=== PATIENT | female | born 1985 | race Caucasian/White ===

== ENCOUNTER 2017-02-19 20:34 | Inpatient (IN) | payer OTHER ==
[2017-02-19] MEDS ORDERED: Nalbuphine 20 MG/1 ML Amp IVPUSH PRN (21:23)
[2017-02-19] MEDS ORDERED: Ondansetron 4 MG/2 ML SDV IVPUSH PRN (21:23)
[2017-02-19] MEDS ORDERED: Acetaminophen 325 MG Tab PO PRN (21:23)
[2017-02-19] MEDS ORDERED: Sodium Chloride 0.9% 10 ML Syringe FLUSH PRN (21:23)
--- NOTE | 2017-02-19 21:27 | PCM.LDHP ---
L&D History of Present Illness - General Date of Service: 02/19/17 Admit Problem/Dx: Patient Status Order with Admit Dx/Problem 02/19/17 21:24 Patient Status [ADT] Routine Admission Diagnosis/Problem Admission Diagnosis/Problem Normal in third trimester Source of Information: Patient History Limitations: Reports: No Limitations - History of Present Illness Introduction:: 31 y/o at 40 3/7 wks presents tonight in likely early latent labor. Was seen in L&D earlier this AM due to concerns of bleeding which was thought to possibly be related to cervical change. She was seen again in the PM in clinic and had made small amounts of cervical change. She now presents tonight stating contractions have been worsening. Still reports continued bleeding/ small clots. - Related Data Allergies/Adverse Reactions: Allergies Allergy/AdvReac Type Severity Reaction Status Date / Time No Known Allergies Allergy Verified 01/03/15 12:02 Past Medical History Other Gastrointestinal History: occ takes pepcid for gastritis. 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 - Past Surgical History HEENT Surgical History: Reports: Tonsillectomy, Other (See Below) Other HEENT Surgeries/Procedures: wisdom teeth extraction Female Surgical History: Reports: Cystectomy Social & Family History - Tobacco Use Smoking Status *Q: Former Smoker (QUIT 2007...1/2 ppd x 2 YRS.) Years of Tobacco use: 2 Used Tobacco, but Quit: Yes Second Hand Smoke Exposure: No - Alcohol Use Alcohol Use History: No Days Per Week of Alcohol Use: 1 - Recreational Drug Use Recreational Drug Use: No Drug Use in Last 12 Months: No H&P Review of Systems - Review of Systems: Review Of Systems: See Below General: Reports: No Symptoms Pulmonary: Reports: No Symptoms Cardiovascular: Reports: No Symptoms Gastrointestinal: Reports: Abdominal Pain Genitourinary: Reports: No Symptoms Musculoskeletal: Reports: No Symptoms Psychiatric: Reports: No Symptoms Neurological: Reports: No Symptoms L&D Exam - Exam Exam: See Below - Vital Signs Weight: 73.799 kg - OB Specific Contraction Intensity: Mild to Moderate Movement: Active Heart Tones: Present Heart Tones per Min: 150 Heart Rate (FHR) Variability: Moderate (6-25 bmp) Presentation: Vertex - Ambrosio Score Ambrosio Score Cervix Position: Posterior Ambrosio Score Consistency: Soft Ambrosio Score Effacement: 51-70% Ambrosio Score Dilation: 1-2 cm Ambrosio Score Infant's Station: -1 ,0 Ambrosio Score Total: 7 - Exam General: Alert, Oriented, Cooperative Lungs: Clear to Auscultation, Normal Respiratory Effort Cardiovascular: Regular Rate, Regular Rhythm Genitourinary: Normal external exam Extremities: Normal Inspection Skin: Warm, Dry, Intact - Patient Data Result Diagrams: 02/19/17 21:40 - Problem List (1) 40 weeks gestation of SNOMED Code(s): 83939644 ICD Code: Z3A.40 - 40 WEEKS GESTATION OF Status: Acute Current Visit: Yes (2) Normal labor SNOMED Code(s): 28894018 ICD Code: O80 - ENCOUNTER FOR FULL-TERM UNCOMPLICATED DELIVERY; Z37.9 - OUTCOME OF DELIVERY, UNSPECIFIED Status: Acute Current Visit: Yes (3) Rh negative state in antepartum period SNOMED Code(s): 522881979, 019891935 ICD Code: O09.899 - SUPERVISION OF OTHER HIGH RISK PREGNANCIES, UNSP TRIMESTER Status: Acute Current Visit: Yes Problem List Initiated/Reviewed/Updated: Yes Orders Last 24hrs: Active Orders 24 hr Category Date Time Status Patient Status [ADT] Routine ADT 02/19/17 21:24 Ordered Activity as Tolerated [RC] PFP Care 02/19/17 21:23 Ordered Communication Order [RC] ASDIRECTED Care 02/19/17 21:23 Ordered Heart Tones [RC] ASDIRECTED Care 02/19/17 21:24 Ordered Notify Provider [RC] PFP Care 02/19/17 21:23 Ordered Notify Provider [RC] PRN Care 02/19/17 21:23 Ordered Peripheral IV Care [RC] . DIRECTED Care 02/19/17 21:24 Ordered Vital Signs [RC] PER UNIT ROUTINE Care 02/19/17 21:23 Ordered CBC W/O DIFF,HEMOGRAM [HEME] Routine Lab 02/19/17 21:23 Ordered FIBRINOGEN [COAG] Routine Lab 02/19/17 21:23 Ordered INR,PT,PROTHROMBIN TIME [COAG] Routine Lab 02/19/17 21:23 Ordered PTT,PARTIAL THROMBOPLSTIN TIME [COAG] Routine Lab 02/19/17 21:23 Ordered TYPE AND SCREEN [BBK] Routine Lab 02/19/17 21:23 Ordered Acetaminophen [Tylenol] Med 02/19/17 21:23 Ordered 650 mg PO Q4H PRN Lactated Ringers [Ringers, Lactated] 1,000 ml Med 02/19/17 21:30 Ordered IV ASDIRECTED Nalbuphine [Nubain] Med 02/19/17 21:23 Ordered 10 mg IVPUSH Q2H PRN Ondansetron [Zofran] Med 02/19/17 21:23 Ordered 4 mg IVPUSH Q4H PRN Oxytocin/Lactated Ringers [Pitocin in LR 10 Units/1,000 Med 02/19/17 21:30 Ordered ML] 10 unit in 1,000 ml IV .CONTINUOUS Sodium Chloride 0.9% [Saline Flush] Med 02/19/17 21:23 Ordered 10 ml FLUSH ASDIRECTED PRN Electronic Heart Tones Ext w TOCO [WOMSER] Oth 02/19/17 21:23 Ordered Routine Electronic Heart Tones Internal [WOMSER] Per Unit Oth 02/19/17 21:23 Ordered Routine Peripheral IV Insertion Adult [OM.PC] Routine Oth 02/19/17 21:23 Ordered Resuscitation Status Routine Resus Stat 02/19/17 21:23 Ordered Assessment/Plan Comment:: 31 y/o at 40 3/7 wks likely presents in early labor, but with continued small amounts of bleeding. * CBC, PTT, PT, and Fibrinogen for continued bleeding episodes * Patient likely early labor, but given bleeding and gestational age will admit patient * If contractions lessen or no cervical change will consider augmentation with cytotec * GBS negative, no need for antibiotics * Pain management per patient preference * Anticipate
[2017-02-19] MEDS ORDERED: Oxytocin/Lactated Ringers 10 UNIT/1,000 ML BAG IV SCH (21:30)
[2017-02-19] MEDS: Lactated Ringers 1,000 ML IV SCH (23:30)
[2017-02-19] MEDS ORDERED: Misoprostol 25 MCG (1/4 of 100 MCG) Tab ONE (23:45)
[2017-02-20] MEDS ORDERED: Zolpidem 10 MG Tab PO STA (00:10)
[2017-02-20] MEDS: Lactated Ringers 1,000 ML IV SCH ×4 (00:31→07:01)
[2017-02-20] MEDS ORDERED: Oxytocin/Lactated Ringers 10 UNIT/1,000 ML BAG IV SCH (04:45)
[2017-02-20] MEDS ORDERED: fentaNYL 100 MCG/2 ML SDV EPIDUR PRN (05:59)
[2017-02-20] MEDS ORDERED: ePHEDrine 50 MG/ML SDV IVPUSH PRN (05:59)
[2017-02-20] MEDS ORDERED: diphenhydrAMINE 50 MG/ML SDV IVPUSH PRN (05:59)
[2017-02-20] MEDS: Bupivacaine/fentaNYL/NS 100 ML Bag EPIDUR SCH ×2 (06:23→14:31)
--- NOTE | 2017-02-20 06:32 | PCM.PREANE ---
Preanesthetic Assessment - Anesthesia/Transfusion/Family Hx Anesthesia History: Prior Anesthesia Without Reaction Family History of Anesthesia Reaction: No Transfusion History: No Prior Transfusion(s) - Review of Systems General: No Symptoms Pulmonary: No Symptoms Cardiovascular: No Symptoms Gastrointestinal: No Symptoms Neurological: No Symptoms Other: Reports: None - Physical Assessment Pulse: 81 O2 Sat by Pulse Oximetry: 99 Respiratory Rate: 16 Blood Pressure: 118/77 Temperature: 36.8 C Vital Signs: Last Vital Signs Temp 36.8 C 02/19/17 21:23 Pulse 81 02/19/17 21:23 Resp 16 02/19/17 21:23 BP 118/77 02/19/17 21:23 Pulse Ox 99 02/19/17 21:23 Height: 1.63 m Weight: 73.799 kg ASA Class: 2 Mental Status: Alert & Oriented x3 Airway Class: Mallampati = 1 Dentition: Reports: Normal Dentition Thyro-Mental Finger Breadths: 3 Mouth Opening Finger Breadths: 3 ROM/Head Extension: Full Lungs: Clear to Auscultation, Normal Respiratory Effort Cardiovascular: Regular Rate, Regular Rhythm - Lab Values: Laboratory Last Values WBC 10.78 K/mm3 (3.98-10.04) H 02/19/17 21:40 RBC 4.08 M/mm3 (3.98-5.22) 02/19/17 21:40 Hgb 12.7 gm/L (11.2-15.7) 02/19/17 21:40 Hct 37.7 % (34.1-44.9) 02/19/17 21:40 MCV 92.4 fl (79.4-94.8) 02/19/17 21:40 MCH 31.1 pg (25.6-32.2) 02/19/17 21:40 MCHC 33.7 g/dl (32.2-35.5) 02/19/17 21:40 RDW Std Deviation 47.9 fL (36.4-46.3) H 02/19/17 21:40 Plt Count 193 K/mm3 (182-369) 02/19/17 21:40 MPV 10.3 fl (9.4-12.3) 02/19/17 21:40 PT 9.4 SECONDS (8.0-13.0) 02/19/17 21:40 INR 0.87 02/19/17 21:40 APTT 26 SECONDS (22-36) 02/19/17 21:40 Fibrinogen 344.6 mg/dL (200-400) 02/19/17 21:40 Blood Type A NEGATIVE 02/19/17 21:40 Gel Antibody Screen Positive 02/19/17 21:40 - Allergies Allergies/Adverse Reactions: Allergies Allergy/AdvReac Type Severity Reaction Status Date / Time No Known Allergies Allergy Verified 01/03/15 12:02 - Anesthesia Plan Pre-Op Medication Ordered: None - Acknowledgements Anesthesia Type Planned: Epidural Pt an Appropriate Candidate for the Planned Anesthesia: Yes Alternatives and Risks of Anesthesia Discussed w Pt/Guardian: Yes Pt/Guardian Understands and Agrees with Anesthesia Plan: Yes PreAnesthesia Questionnaire - Past Health History Medical/Surgical History: Denies Medical/Surgical History Other HEENT History: wears contacts Gastrointestinal History: Reports: GERD Other Gastrointestinal History: occ takes pepcid for gastritis. 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 Other Neuro History: had one seizure when was a first grader. - Past Surgical History Other HEENT Surgeries/Procedures: wisdom teeth extraction - SUBSTANCE USE Smoking Status *Q: Former Smoker (QUIT 2007...1/2 ppd x 2 YRS.) Tobacco Use Within Last Twelve Months: No Other Tobacco Use Within Last Twelve Months: 2 yrs ago Second Hand Smoke Exposure: No Days Per Week of Alcohol Use: 1 Recreational Drug Use History: No - CURRENT (IN HOUSE) MEDS Current Meds: Current Medications Acetaminophen (Tylenol) 650 mg PO Q4H PRN PRN Reason: Pain (Mild 1-3) and fever Diphenhydramine HCl (Benadryl) 25 mg IVPUSH Q6H PRN PRN Reason: Itching Ephedrine Sulfate (Ephedrine Sulfate) 5 mg IVPUSH ASDIRECTED PRN PRN Reason: HYPOTENTSION Fentanyl (Sublimaze) 100 mcg EPIDUR Q3H PRN PRN Reason: PAIN Last Admin: 02/20/17 06:23 Dose: 100 mcg Fentanyl/Bupivacaine HCl (Fentanyl/Bupivacaine/Ns 2 Mcg-0.125% 100 Ml) 100 ml EPIDUR ASDIRECTED NATHALIE Last Admin: 02/20/17 06:23 Dose: 100 ml Lactated Ringer's (Ringers, Lactated) 1,000 mls @ 40 mls/hr IV ASDIRECTED NATHALIE Last Admin: 02/20/17 04:57 Dose: 500 mls/hr Oxytocin/Lactated Ringer's (Pitocin In Lr 10 Units/1,000 Ml) 10 unit in 1,000 mls @ 500 mls/hr IV .CONTINUOUS NATHALIE Oxytocin/Lactated Ringer's (Pitocin In Lr 10 Units/1,000 Ml) 10 unit in 1,000 mls @ 6 mls/hr IV TITRATE NATHALIE; 1 MUNITS/MIN PRN Reason: Protocol Last Admin: 02/20/17 05:00 Dose: 1 munits/min, 6 mls/hr Nalbuphine HCl (Nubain) 10 mg IVPUSH Q2H PRN PRN Reason: Pain (moderate 4-6) Last Admin: 02/20/17 03:08 Dose: 10 mg Ondansetron HCl (Zofran) 4 mg IVPUSH Q4H PRN PRN Reason: Nausea/Vomiting Sodium Chloride (Saline Flush) 10 ml FLUSH ASDIRECTED PRN PRN Reason: Keep Vein Open Discontinued Medications Misoprostol (Cytotec) Confirm Administered Dose 25 mcg .ROUTE .STK-MED ONE Stop: 02/19/17 23:46 Last Admin: 02/19/17 23:54 Dose: 25 mcg Zolpidem Tartrate (Ambien) 10 mg PO ONETIME STA Stop: 02/20/17 00:11 Last Admin: 02/20/17 00:25 Dose: 10 mg
--- NOTE | 2017-02-20 08:55 | PCM.PNLD ---
Labor Progress Note - VS & Meds Vital Signs: Last Vital Signs Temp 36.8 C 02/20/17 06:32 Pulse 81 02/20/17 06:32 Resp 16 02/20/17 06:32 BP 118/77 02/20/17 06:32 Pulse Ox 99 02/20/17 06:32 Active Medications: Current Medications Acetaminophen (Tylenol) 650 mg PO Q4H PRN PRN Reason: Pain (Mild 1-3) and fever Diphenhydramine HCl (Benadryl) 25 mg IVPUSH Q6H PRN PRN Reason: Itching Ephedrine Sulfate (Ephedrine Sulfate) 5 mg IVPUSH ASDIRECTED PRN PRN Reason: HYPOTENTSION Fentanyl (Sublimaze) 100 mcg EPIDUR Q3H PRN PRN Reason: PAIN Last Admin: 02/20/17 06:23 Dose: 100 mcg Fentanyl/Bupivacaine HCl (Fentanyl/Bupivacaine/Ns 2 Mcg-0.125% 100 Ml) 100 ml EPIDUR ASDIRECTED NATHALIE Last Admin: 02/20/17 06:23 Dose: 100 ml Lactated Ringer's (Ringers, Lactated) 1,000 mls @ 40 mls/hr IV ASDIRECTED NATHALIE Last Admin: 02/20/17 07:01 Dose: 500 mls/hr Oxytocin/Lactated Ringer's (Pitocin In Lr 10 Units/1,000 Ml) 10 unit in 1,000 mls @ 500 mls/hr IV .CONTINUOUS NATHALIE Oxytocin/Lactated Ringer's (Pitocin In Lr 10 Units/1,000 Ml) 10 unit in 1,000 mls @ 6 mls/hr IV TITRATE NATHALIE; 1 MUNITS/MIN PRN Reason: Protocol Last Admin: 02/20/17 05:00 Dose: 1 munits/min, 6 mls/hr Nalbuphine HCl (Nubain) 10 mg IVPUSH Q2H PRN PRN Reason: Pain (moderate 4-6) Last Admin: 02/20/17 03:08 Dose: 10 mg Ondansetron HCl (Zofran) 4 mg IVPUSH Q4H PRN PRN Reason: Nausea/Vomiting Sodium Chloride (Saline Flush) 10 ml FLUSH ASDIRECTED PRN PRN Reason: Keep Vein Open Discontinued Medications Misoprostol (Cytotec) Confirm Administered Dose 25 mcg .ROUTE .STK-MED ONE Stop: 02/19/17 23:46 Last Admin: 02/19/17 23:54 Dose: 25 mcg Zolpidem Tartrate (Ambien) 10 mg PO ONETIME STA Stop: 02/20/17 00:11 Last Admin: 02/20/17 00:25 Dose: 10 mg - Uterine Contractions Contraction Intensity: Mild to Moderate - Monitoring Monitor Mode: External Ultrasound Heart Rate (FHR) Baseline: 150 Heart Rate (FHR) Variability: Moderate (6-25 bmp) Accelerations: Present, 15x15 Decelerations: Late - Vaginal Exam Dilation (cm): 4 Effacement (Percent): 80 Station: 0 Cervical Position: Midposition - Labor Progress (Free Text) Labor Progress: Called by nursing at 0545 due to prolonged deceleration. SVE done and shows patient to be 4 cm. Baby recovered currently. Did receive 1 dose of cytotec last night at midnight and just had SROM at 0500. Baby recovered now. Will allow epidural placement and then continue to monitor closely ---- 0800 patient doing well. Baby with some periods of minimal variability. Contractions hard to monitor. Will place IUPC and then start pitocin as needed.
--- NOTE | 2017-02-20 11:40 | PCM.PNLD ---
Labor Progress Note - VS & Meds Vital Signs: Last Vital Signs Temp 36.8 C 02/20/17 06:32 Pulse 81 02/20/17 06:32 Resp 16 02/20/17 06:32 BP 118/77 02/20/17 06:32 Pulse Ox 99 02/20/17 06:32 Active Medications: Current Medications Acetaminophen (Tylenol) 650 mg PO Q4H PRN PRN Reason: Pain (Mild 1-3) and fever Diphenhydramine HCl (Benadryl) 25 mg IVPUSH Q6H PRN PRN Reason: Itching Ephedrine Sulfate (Ephedrine Sulfate) 5 mg IVPUSH ASDIRECTED PRN PRN Reason: HYPOTENTSION Fentanyl (Sublimaze) 100 mcg EPIDUR Q3H PRN PRN Reason: PAIN Last Admin: 02/20/17 06:23 Dose: 100 mcg Fentanyl/Bupivacaine HCl (Fentanyl/Bupivacaine/Ns 2 Mcg-0.125% 100 Ml) 100 ml EPIDUR ASDIRECTED NATHALIE Last Admin: 02/20/17 06:23 Dose: 100 ml Lactated Ringer's (Ringers, Lactated) 1,000 mls @ 40 mls/hr IV ASDIRECTED NATHALIE Last Admin: 02/20/17 07:01 Dose: 500 mls/hr Oxytocin/Lactated Ringer's (Pitocin In Lr 10 Units/1,000 Ml) 10 unit in 1,000 mls @ 500 mls/hr IV .CONTINUOUS NATHALIE Oxytocin/Lactated Ringer's (Pitocin In Lr 10 Units/1,000 Ml) 10 unit in 1,000 mls @ 6 mls/hr IV TITRATE NATHALIE; 1 MUNITS/MIN PRN Reason: Protocol Last Titration: 02/20/17 09:31 Dose: 4 munits/min, 24 mls/hr Nalbuphine HCl (Nubain) 10 mg IVPUSH Q2H PRN PRN Reason: Pain (moderate 4-6) Last Admin: 02/20/17 03:08 Dose: 10 mg Ondansetron HCl (Zofran) 4 mg IVPUSH Q4H PRN PRN Reason: Nausea/Vomiting Sodium Chloride (Saline Flush) 10 ml FLUSH ASDIRECTED PRN PRN Reason: Keep Vein Open Discontinued Medications Misoprostol (Cytotec) Confirm Administered Dose 25 mcg .ROUTE .STK-MED ONE Stop: 02/19/17 23:46 Last Admin: 02/19/17 23:54 Dose: 25 mcg Zolpidem Tartrate (Ambien) 10 mg PO ONETIME STA Stop: 02/20/17 00:11 Last Admin: 02/20/17 00:25 Dose: 10 mg - Uterine Contractions Uterine Monitoring Mode: IUPC Contraction Intensity: Moderate to Strong - Monitoring Monitor Mode: External Ultrasound Heart Rate (FHR) Baseline: 150 Heart Rate (FHR) Variability: Moderate (6-25 bmp) (Some periods of minimal variability) Accelerations: Present, 15x15 Decelerations: Early - Vaginal Exam Dilation (cm): 6 Effacement (Percent): 90 Station: 0 Cervical Position: Anterior - Labor Progress (Free Text) Labor Progress: Patient doing well. Pitocin at 6. Making good change. Continue present management
--- NOTE | 2017-02-20 18:58 | PCM.DEL ---
L & D Note - General Info Date of Service: 02/20/17 - Delivery Note Labor: Augmented by Oxytocin Cervical Ripening Method: Misoprostil Delivery Outcome: Livebirth Infant Delivery Method: Spontaneous Vaginal Delivery Delivery Mode: Spontaneous Presentation: Right Occiput Anterior (APRIL) Nuchal Cord: None Anesthesia Type: Epidural Amniotic Fluid Description: Meconium Stained Episiotomy Type: None Laceration: 2nd Degree, Vaginal Suture type: Vicryl Suture size: 2-0 Placenta: Intact, Spontaneous Cord: 3 Vessels Estimated Blood Loss: 350 Resuscitation Needed: Yes [place]: Suctioned, Bulb Syringe, Stimulated, Warmed, Schaller Used, Warmer Used Score 1 min: 6 Score 5 min: 8 Delivery Comments (Free Text/Narrative):: Patient found to be complete and began pushing. With maternal pushing effort head delivered from an APRIL presentation. No nuchal cord present. With gentle downward traction the shoulders and body delivered. Cord clamped and cut. Cord segment obtained. Cord blood obtained. Placenta allowed time to separate and then spontaneously expelled. Inspection of the perineum showed 2nd degree tear expending up both vaginal sulci. This was repaired with a 2-0 vicryl in the typical fashion - Patient Data Vitals - Most Recent: Last Vital Signs Temp 36.8 C 02/20/17 06:32 Pulse 81 02/20/17 06:32 Resp 16 02/20/17 06:32 BP 118/77 02/20/17 06:32 Pulse Ox 99 02/20/17 06:32 Weight - Most Recent: 73.799 kg I&O - Last 24 Hours: Intake & Output 02/20/17 02/20/17 02/20/17 06:59 14:59 22:59 Intake Total 999 5000 60 Balance 999 5000 60 Lab Results Last 24 Hours: Laboratory Results - last 24 hr 02/19/17 02/19/17 02/19/17 Range/Units 21:40 21:40 21:40 WBC 10.78 H (3.98-10.04) K/mm3 RBC 4.08 (3.98-5.22) M/mm3 Hgb 12.7 (11.2-15.7) gm/L Hct 37.7 (34.1-44.9) % MCV 92.4 (79.4-94.8) fl MCH 31.1 (25.6-32.2) pg MCHC 33.7 (32.2-35.5) g/dl RDW Std Deviation 47.9 H (36.4-46.3) fL Plt Count 193 (182-369) K/mm3 MPV 10.3 (9.4-12.3) fl PT 9.4 (8.0-13.0) SECONDS INR 0.87 APTT 26 (22-36) SECONDS Fibrinogen 344.6 (200-400) mg/dL Blood Type A NEGATIVE Gel Antibody Screen Positive Med Orders - Current: Current Medications Acetaminophen (Tylenol) 650 mg PO Q4H PRN PRN Reason: Pain (Mild 1-3) and fever Diphenhydramine HCl (Benadryl) 25 mg IVPUSH Q6H PRN PRN Reason: Itching Ephedrine Sulfate (Ephedrine Sulfate) 5 mg IVPUSH ASDIRECTED PRN PRN Reason: HYPOTENTSION Fentanyl (Sublimaze) 100 mcg EPIDUR Q3H PRN PRN Reason: PAIN Last Admin: 02/20/17 06:23 Dose: 100 mcg Fentanyl/Bupivacaine HCl (Fentanyl/Bupivacaine/Ns 2 Mcg-0.125% 100 Ml) 100 ml EPIDUR ASDIRECTED NATHALIE Last Admin: 02/20/17 14:31 Dose: 100 ml Lactated Ringer's (Ringers, Lactated) 1,000 mls @ 40 mls/hr IV ASDIRECTED NATHALIE Last Admin: 02/20/17 07:01 Dose: 500 mls/hr Oxytocin/Lactated Ringer's (Pitocin In Lr 10 Units/1,000 Ml) 10 unit in 1,000 mls @ 500 mls/hr IV .CONTINUOUS NATHALIE Oxytocin/Lactated Ringer's (Pitocin In Lr 10 Units/1,000 Ml) 10 unit in 1,000 mls @ 6 mls/hr IV TITRATE NATHALIE; 1 MUNITS/MIN PRN Reason: Protocol Last Titration: 02/20/17 11:00 Dose: 6 munits/min, 36 mls/hr Nalbuphine HCl (Nubain) 10 mg IVPUSH Q2H PRN PRN Reason: Pain (moderate 4-6) Last Admin: 02/20/17 03:08 Dose: 10 mg Ondansetron HCl (Zofran) 4 mg IVPUSH Q4H PRN PRN Reason: Nausea/Vomiting Sodium Chloride (Saline Flush) 10 ml FLUSH ASDIRECTED PRN PRN Reason: Keep Vein Open Discontinued Medications Misoprostol (Cytotec) Confirm Administered Dose 25 mcg .ROUTE .STK-MED ONE Stop: 02/19/17 23:46 Last Admin: 02/19/17 23:54 Dose: 25 mcg Zolpidem Tartrate (Ambien) 10 mg PO ONETIME STA Stop: 02/20/17 00:11 Last Admin: 02/20/17 00:25 Dose: 10 mg - Problem List & Annotations (1) 40 weeks gestation of SNOMED Code(s): 93800890 Code(s): Z3A.40 - 40 WEEKS GESTATION OF Status: Acute Current Visit: Yes (2) Normal labor SNOMED Code(s): 91777051 Code(s): O80 - ENCOUNTER FOR FULL-TERM UNCOMPLICATED DELIVERY; Z37.9 - OUTCOME OF DELIVERY, UNSPECIFIED Status: Acute Current Visit: Yes (3) Rh negative state in antepartum period SNOMED Code(s): 852316380, 273373249 Code(s): O09.899 - SUPERVISION OF OTHER HIGH RISK PREGNANCIES, UNSP TRIMESTER Status: Acute Current Visit: Yes (4) Vaginal delivery SNOMED Code(s): 803882733 Code(s): O80 - ENCOUNTER FOR FULL-TERM UNCOMPLICATED DELIVERY Status: Acute Current Visit: Yes - Problem List Review Problem List Initiated/Reviewed/Updated: Yes - My Orders Last 24 Hours: My Active Orders 02/19/17 21:23 Activity as Tolerated [RC] PFP Communication Order [RC] ASDIRECTED Notify Provider [RC] PFP Notify Provider [RC] PRN Vital Signs [RC] PER UNIT ROUTINE Acetaminophen [Tylenol] 650 mg PO Q4H PRN Nalbuphine [Nubain] 10 mg IVPUSH Q2H PRN Ondansetron [Zofran] 4 mg IVPUSH Q4H PRN Sodium Chloride 0.9% [Saline Flush] 10 ml FLUSH ASDIRECTED PRN Electronic Heart Tones Ext w TOCO [WOMSER] Routine Electronic Heart Tones Internal [WOMSER] Per Unit Routine Peripheral IV Insertion Adult [OM.PC] Routine Resuscitation Status Routine 02/19/17 21:24 Patient Status [ADT] Routine Peripheral IV Care [RC] . DIRECTED 02/19/17 21:30 Lactated Ringers [Ringers, Lactated] 1,000 ml IV ASDIRECTED Oxytocin/Lactated Ringers [Pitocin in LR 10 Units/1,000 ML] 10 unit in 1,000 ml IV .CONTINUOUS 02/19/17 21:40 ANTIBODY IDENTIFICATION [BBK] Routine TYPE AND SCREEN [BBK] Routine 02/20/17 04:45 Oxytocin/Lactated Ringers [Pitocin in LR 10 Units/1,000 ML] 10 unit in 1,000 ml IV TITRATE 02/20/17 Lunch Regular Diet [DIET] - Assessment Assessment:: G2 now P1011 PPD#0 from at 40 4/7 wks gestation - Plan Plan:: * Routine cares * Bottle feeding * Discharge home in 1-2 day Rh neg * Will assess baby blood type to see if additional rhogam needed
[2017-02-20] MEDS ORDERED: Lanolin 100% Cream 7 GM Tube TOP PRN (19:15)
[2017-02-20] MEDS ORDERED: Witch Hazel Medicated Pads 100/Jar TOP PRN (19:15)
[2017-02-20] MEDS ORDERED: Benzocaine/Menthol 20%-0.5% Spray 56 GM Canister TOP PRN (19:15)
[2017-02-20] MEDS ORDERED: Acetaminophen 325 MG Tab PO PRN (19:15)
[2017-02-20] MEDS ORDERED: Bupivacaine 0.25% 10 ML SDV ONE (22:22)
[2017-02-21] MEDS: Docusate Sodium 100 MG Cap PO PRN (00:15)
[2017-02-21] MEDS: Ibuprofen 600 MG Tab PO PRN ×3 (00:15→18:36)
--- NOTE | 2017-02-21 06:34 | PCM.PNPP ---
- General Info Date of Service: 02/21/17 Admission Dx/Problem (Free Text): PPD1 from deliver last evening. Would like to go home at 24 hours but awaiting baby voiding and circumcision. Minimal bleeding. Pain moderate. Controlled with ibuprofen. No significant leg swelling. Functional Status: Reports: Pain Controlled - Review of Systems General: Reports: No Symptoms HEENT: Reports: No Symptoms Pulmonary: Reports: No Symptoms Cardiovascular: Reports: No Symptoms Gastrointestinal: Reports: No Symptoms Genitourinary: Reports: No Symptoms Musculoskeletal: Reports: No Symptoms Skin: Reports: No Symptoms Neurological: Reports: No Symptoms Psychiatric: Reports: No Symptoms - General Info Date of Service: 02/21/17 - Patient Data Vital Signs - Most Recent: Last Vital Signs Temp 36.7 C 02/21/17 00:01 Pulse 113 H 02/21/17 00:01 Resp 18 02/21/17 00:01 BP 109/71 02/21/17 00:01 Pulse Ox 98 02/21/17 00:01 Weight - Most Recent: 73.799 kg I&O - Last 24 Hours: Intake & Output 02/20/17 02/20/17 02/21/17 14:59 22:59 06:59 Intake Total 5000 1060 Balance 5000 1060 Lab Results - Last 24 Hours: Laboratory Results - last 24 hr 02/20/17 02/20/17 Range/Units 18:46 19:05 Cord ABG pH 7.18 L (7.22-7.32) Cord ABG pCO2 50.6 (42-58) Cord ABG pO2 34 H (12-24) Cord ABG HCO3 18.2 L (24-26) Cord ABG Base Excess -10.7 L (-5.5-0.1) Cord VBG pH 7.21 L (7.28-7.40) Cord VBG pCO2 45.3 H (32.8-38.6) Cord VBG pO2 31 (28-32) Cord VBG HCO3 17.5 L (19-24) Cord VBG Base Excess -10.5 L (-4.4-0.4) Med Orders - Current: Current Medications Acetaminophen (Tylenol) 650 mg PO Q4H PRN PRN Reason: mild pain or fever Benzocaine/Menthol (Dermoplast Pain Relief [place]) 0 gm TOP ASDIRECTED PRN PRN Reason: Perineal Comfort Measure Last Admin: 02/20/17 22:23 Dose: 1 can Docusate Sodium (Colace) 100 mg PO BID PRN PRN Reason: Constipation Last Admin: 02/21/17 00:15 Dose: 100 mg Emollient Ointment (Lansinoh Hpa) 0 gm TOP ASDIRECTED PRN PRN Reason: Sore Nipples Ibuprofen (Motrin) 600 mg PO Q6H PRN PRN Reason: Mild pain or fever Last Admin: 02/21/17 00:15 Dose: 600 mg Witch Noemi (Tucks) 1 pad TOP ASDIRECTED PRN PRN Reason: Hemorrhoid pain Last Admin: 02/20/17 22:23 Dose: 1 tub Discontinued Medications Acetaminophen (Tylenol) 650 mg PO Q4H PRN PRN Reason: Pain (Mild 1-3) and fever Diphenhydramine HCl (Benadryl) 25 mg IVPUSH Q6H PRN PRN Reason: Itching Ephedrine Sulfate (Ephedrine Sulfate) 5 mg IVPUSH ASDIRECTED PRN PRN Reason: HYPOTENTSION Fentanyl (Sublimaze) 100 mcg EPIDUR Q3H PRN PRN Reason: PAIN Last Admin: 02/20/17 06:23 Dose: 100 mcg Fentanyl/Bupivacaine HCl (Fentanyl/Bupivacaine/Ns 2 Mcg-0.125% 100 Ml) 100 ml EPIDUR ASDIRECTED NATHALIE Last Admin: 02/20/17 14:31 Dose: 100 ml Lactated Ringer's (Ringers, Lactated) 1,000 mls @ 40 mls/hr IV ASDIRECTED [facility] Last Admin: 02/20/17 07:01 Dose: 500 mls/hr Oxytocin/Lactated Ringer's (Pitocin In Lr 10 Units/1,000 Ml) 10 unit in 1,000 mls @ 500 mls/hr IV .CONTINUOUS NATHALIE Oxytocin/Lactated Ringer's (Pitocin In Lr 10 Units/1,000 Ml) 10 unit in 1,000 mls @ 6 mls/hr IV TITRATE NATHALIE; 1 MUNITS/MIN PRN Reason: Protocol Last Titration: 02/20/17 18:30 Dose: 999 mls/hr Misoprostol (Cytotec) Confirm Administered Dose 25 mcg .ROUTE .STK-MED ONE Stop: 02/19/17 23:46 Last Admin: 02/19/17 23:54 Dose: 25 mcg Nalbuphine HCl (Nubain) 10 mg IVPUSH Q2H PRN PRN Reason: Pain (moderate 4-6) Last Admin: 02/20/17 03:08 Dose: 10 mg Ondansetron HCl (Zofran) 4 mg IVPUSH Q4H PRN PRN Reason: Nausea/Vomiting Sodium Chloride (Saline Flush) 10 ml FLUSH ASDIRECTED PRN PRN Reason: Keep Vein Open Zolpidem Tartrate (Ambien) 10 mg PO ONETIME STA Stop: 02/20/17 00:11 Last Admin: 02/20/17 00:25 Dose: 10 mg - Infant Interaction Support Person: - Recovery Exam Fundal Tone: Firm Fundal Level: At Umbilicus Fundal Placement: Midline Lochia Amount: Small Lochia Color: Rubra/Red Perineum Description: Edematous Episiotomy/Laceration: Approximated Bladder Status: Voiding Urinary Elimination: Voided - Exam General: Alert, Oriented HEENT: Pupils Equal Neck: Supple Lungs: Clear to Auscultation, Normal Respiratory Effort Cardiovascular: Regular Rate, Regular Rhythm GI/Abdominal Exam: Normal Bowel Sounds, Soft, Non-Tender, No Organomegaly, No Distention, No Abnormal Bruit, No Mass, Pelvis Stable Extremities: Normal Inspection, Normal Range of Motion, Non-Tender, No Pedal Edema, Normal Capillary Refill Skin: Warm, Dry, Intact Wound/Incisions: Healing Well Neurological: No New Focal Deficit Psy/Mental Status: Alert, Normal Affect, Normal Mood - Problem List Review Problem List Initiated/Reviewed/Updated: Yes - Assessment Assessment:: G2 now P1011 PPD#1 from at 40 4/7 wks gestation Routine care. - Plan Plan:: * Routine cares * Bottle feeding * Discharge home in 1-2 day Rh neg * Will assess baby blood type to see if additional rhogam needed
[2017-02-22] MEDS: Docusate Sodium 100 MG Cap PO PRN (00:44)
[2017-02-22] MEDS: Ibuprofen 600 MG Tab PO PRN ×2 (00:45→08:22)
[2017-02-22 05:14] VITALS: BP 110/65
--- NOTE | 2017-02-22 07:52 | PCM.DCSUM1 ---
Discharge Summary - Hospital Course Brief History: Admitted for induction of labor. . Unremarkable course. - Discharge Data Discharge Date: 02/22/17 Discharge Disposition: Home, Self-Care 01 Condition: Good - Patient Instructions Diet: Usual Diet as Tolerated Activity: No Strenuous Activities Driving: May Drive Today Showering/Bathing: May Shower, No Showering, No Tub Bathing/Swimming, May Shower in 3 Days, Shower in AM Notify Provider of: Fever, Increased Pain, Swelling and Redness, Drainage, Nausea and/or Vomiting - Discharge Plan - Discharge Summary/Plan Comment DC Time >30 min.: No - General Info Date of Service: 02/22/17 Functional Status: Reports: Pain Controlled - Review of Systems General: Reports: No Symptoms HEENT: Reports: No Symptoms Pulmonary: Reports: No Symptoms Cardiovascular: Reports: No Symptoms Gastrointestinal: Reports: No Symptoms Genitourinary: Reports: No Symptoms Musculoskeletal: Reports: No Symptoms Skin: Reports: No Symptoms Neurological: Reports: No Symptoms Psychiatric: Reports: No Symptoms - Patient Data Vitals - Most Recent: Last Vital Signs Temp 36.6 C 02/22/17 04:33 Pulse 94 02/22/17 04:33 Resp 16 02/22/17 04:33 BP 110/65 02/22/17 04:33 Pulse Ox 100 02/22/17 04:33 Weight - Most Recent: 73.799 kg Lab Results - Last 24 hrs: Laboratory Results - last 24 hr 02/19/17 Range/Units 21:40 Blood Type A NEGATIVE Gel Antibody Screen Positive Antibody Identification Anti-D Med Orders - Current: Current Medications Acetaminophen (Tylenol) 650 mg PO Q4H PRN PRN Reason: mild pain or fever Benzocaine/Menthol (Dermoplast Pain Relief [place]) 0 gm TOP ASDIRECTED PRN PRN Reason: Perineal Comfort Measure Last Admin: 02/20/17 22:23 Dose: 1 can Docusate Sodium (Colace) 100 mg PO BID PRN PRN Reason: Constipation Last Admin: 02/22/17 00:44 Dose: 100 mg Emollient Ointment (Lansinoh Hpa) 0 gm TOP ASDIRECTED PRN PRN Reason: Sore Nipples Ibuprofen (Motrin) 600 mg PO Q6H PRN PRN Reason: Mild pain or fever Last Admin: 02/22/17 00:45 Dose: 600 mg Witch Noemi (Tucks) 1 pad TOP ASDIRECTED PRN PRN Reason: Hemorrhoid pain Last Admin: 02/20/17 22:23 Dose: 1 tub Discontinued Medications Acetaminophen (Tylenol) 650 mg PO Q4H PRN PRN Reason: Pain (Mild 1-3) and fever Diphenhydramine HCl (Benadryl) 25 mg IVPUSH Q6H PRN PRN Reason: Itching Ephedrine Sulfate (Ephedrine Sulfate) 5 mg IVPUSH ASDIRECTED PRN PRN Reason: HYPOTENTSION Fentanyl (Sublimaze) 100 mcg EPIDUR Q3H PRN PRN Reason: PAIN Last Admin: 02/20/17 06:23 Dose: 100 mcg Fentanyl/Bupivacaine HCl (Fentanyl/Bupivacaine/Ns 2 Mcg-0.125% 100 Ml) 100 ml EPIDUR ASDIRECTED NATHALIE Last Admin: 02/20/17 14:31 Dose: 100 ml Lactated Ringer's (Ringers, Lactated) 1,000 mls @ 40 mls/hr IV ASDIRECTED NATHALIE Last Admin: 02/20/17 07:01 Dose: 500 mls/hr Oxytocin/Lactated Ringer's (Pitocin In Lr 10 Units/1,000 Ml) 10 unit in 1,000 mls @ 500 mls/hr IV .CONTINUOUS NATHALIE Oxytocin/Lactated Ringer's (Pitocin In Lr 10 Units/1,000 Ml) 10 unit in 1,000 mls @ 6 mls/hr IV TITRATE NATHALIE; 1 MUNITS/MIN PRN Reason: Protocol Last Titration: 02/20/17 18:30 Dose: 999 mls/hr Misoprostol (Cytotec) Confirm Administered Dose 25 mcg .ROUTE .STK-MED ONE Stop: 02/19/17 23:46 Last Admin: 02/19/17 23:54 Dose: 25 mcg Nalbuphine HCl (Nubain) 10 mg IVPUSH Q2H PRN PRN Reason: Pain (moderate 4-6) Last Admin: 02/20/17 03:08 Dose: 10 mg Ondansetron HCl (Zofran) 4 mg IVPUSH Q4H PRN PRN Reason: Nausea/Vomiting Sodium Chloride (Saline Flush) 10 ml FLUSH ASDIRECTED PRN PRN Reason: Keep Vein Open Zolpidem Tartrate (Ambien) 10 mg PO ONETIME STA Stop: 02/20/17 00:11 Last Admin: 02/20/17 00:25 Dose: 10 mg - Exam General: Reports: Alert, Oriented HEENT: Reports: Pupils Equal, Pupils Reactive, EOMI, Mucous Membr. Moist/[place] Neck: Reports: Supple Lungs: Reports: Clear to Auscultation, Normal Respiratory Effort Cardiovascular: Reports: Regular Rate, Regular Rhythm GI/Abdominal Exam: Normal Bowel Sounds, Soft, Non-Tender, No Organomegaly, No Distention, No Abnormal Bruit, No Mass, Pelvis Stable Back Exam: Reports: Normal Inspection, Full Range of Motion Extremities: Normal Inspection, Normal Range of Motion, Non-Tender, No Pedal Edema, Normal Capillary Refill Skin: Reports: Warm, Dry, Intact Wound/Incisions: Reports: Healing Well Neurological: Reports: No New Focal Deficit Psy/Mental Status: Reports: Alert, Normal Affect, Normal Mood *Q Meaningful Use (DIS) - VTE *Q VTE Criteria *Q: - Stroke *Q Stroke Criteria *Q: - AMI *Q AMI Criteria *Q:
== END 2017-02-22 10:20 | disposition home or self-care (01) | DRG 774 ==
LOC: JD.OBCHECK 20:34 → JD.OB 20:35 → JD.OBCHECK 21:24 → OBSVTOIN 02-20 18:29 → JD.OB 02-20 18:29
PROVIDERS: ADMIT Obstetrics & Gynecology; ATTEND Obstetrics & Gynecology
PROC: 10E0XZZ Delivery of Products of Conception, External Approach (ICD-10-PCS; principal; 2017-02-20)
PROC: 0KQM0ZZ Repair Perineum Muscle, Open Approach (ICD-10-PCS; 2017-02-20)
PROC: 00HU33Z Insertion of Infusion Device into Spinal Canal, Percutaneous Approach (ICD-10-PCS; 2017-02-20)
PROC: 3E0R3CZ (ICD-10-PCS; 2017-02-20)
DX: O70.1 Second degree perineal laceration during delivery (principal); Z37.0 Single live birth; O46.93 Antepartum hemorrhage, unspecified, third trimester; O42.02 Full-term premature rupture of membranes, onset of labor within 24 hours of rupture; Z3A.41 41 weeks gestation of pregnancy
CPT/HCPCS: 36415; 36600; 59025; 82803; 85027; 85384; 85610; 85730; 86850; 86870; 86900; 86901; A9270-GY; J2300; J2590; J3010; J7120

== ENCOUNTER 2023-08-15 07:04 | Inpatient (IN) | payer BC ==
[2023-08-15] MEDS ORDERED: Sodium Chloride 0.9% 10 ML Syringe FLUSH PRN (07:16)
[2023-08-15] MEDS ORDERED: Ondansetron 4 MG/2 ML SDV IVPUSH PRN (07:16)
[2023-08-15] MEDS ORDERED: Lidocaine 1% 50 ML MDV INJECT PRN (07:16)
[2023-08-15] MEDS ORDERED: Nalbuphine HCl 10 MG/ 1ML Amp IVPUSH PRN (07:16)
[2023-08-15] MEDS ORDERED: Oxytocin/Lactated Ringers 30 UNIT/500 ML BAG IV SCH ×2 (07:30)
[2023-08-15] MEDS: Lactated Ringers 1,000 ML IV SCH ×3 (07:43→19:28)
[2023-08-15 07:53] LABS: BASOPHILS PERCENT AUTO 0.2 % (0.0-1.0); EOSINOPHILS PERCENT AUTO 0.2 % (0.0-6.0); HEMATOCRIT 38.9 % (37.0-47.0); IMMATURE GRAN ABSOLUTE AUTO 0.04 K/mm3 (0.00-0.05); IMMATURE GRAN PERCENT AUTO 0.4 % (0.0-0.4); LYMPHOCYTES ABSOLUTE AUTO 1.8 K/mm3 (1.0-4.8); LYMPHOCYTES PERCENT AUTO 20.4 % (24.0-44.0); MEAN CORPUSCULAR HGB CONC 33.4 g/dl (32.0-36.0); MEAN CORPUSCULAR VOLUME 89.6 fl (83.0-99.0); MEAN PLATELET VOLUME 10.4 fl (9.4-12.3); MONOCYTES ABSOLUTE AUTO 0.3 K/mm3 (0.0-0.8); MONOCYTES PERCENT AUTO 3.8 % (0.0-8.0); NEUTROPHILS ABSOLUTE AUTO 6.8 K/mm3 (1.8-7.7); PLATELET COUNT,PLT 196 K/mm3 (150-400); RED BLOOD CELL COUNT 4.34 M/mm3 (4.10-5.30); WHITE BLOOD CELL COUNT,WBC 9.04 K/mm3 (3.9-11.3)
[2023-08-15] MEDS ORDERED: ePHEDrine 50 MG/ML SDV IVPUSH PRN (10:32)
[2023-08-15] MEDS ORDERED: fentaNYL 100 MCG/2 ML SDV EPIDUR PRN (10:32)
[2023-08-15] MEDS ORDERED: diphenhydrAMINE 50 MG/ML SDV IVPUSH PRN (10:32)
[2023-08-15] MEDS ORDERED: Bupivacaine/fentaNYL/NS 100 ML Bag EPIDUR PRN (10:32)
[2023-08-15] MEDS: Sodium Chloride 0.9% 10 ML Syringe FLUSH SCH (10:45)
[2023-08-15] MEDS ORDERED: Sodium Chloride 0.9% 1,000 ML ONE (20:17)
[2023-08-15] MEDS ORDERED: Metoclopramide 10 MG/2 ML SDV IVPUSH ONE (20:27)
[2023-08-15] MEDS ORDERED: Azithromycin 500 MG in Sodium Chloride 0.9% 250 ML IV ONE (20:27)
[2023-08-15] MEDS ORDERED: ceFAZolin 2 GM in Sodium Chloride 0.9% 50 ML IV ONE (20:27)
[2023-08-15] MEDS ORDERED: Citric Acid/Sodium Citrate Solution 30 ML Cup PO ONE (20:27)
[2023-08-15] MEDS ORDERED: Lidocaine 1% 10 ML MDV ONE (23:00)
[2023-08-16] MEDS ORDERED: Acetaminophen 325 MG Tab PO PRN (00:07)
[2023-08-16] MEDS ORDERED: Docusate Sodium 100 MG Cap PO PRN (00:07)
[2023-08-16] MEDS ORDERED: Benzocaine/Menthol 20%-0.5% Spray 78 GM Cannister TOP PRN (00:07)
[2023-08-16] MEDS ORDERED: Witch Hazel Medicated Pads 40/Jar TOP PRN (00:07)
[2023-08-16] MEDS: Ibuprofen 600 MG Tab PO PRN ×4 (01:42→23:02)
[2023-08-16] MEDS: Sodium Chloride 0.9% 10 ML Syringe FLUSH SCH (02:06)
[2023-08-17] MEDS: Ibuprofen 600 MG Tab PO PRN (06:15)
[2023-08-17 06:57] VITALS: BP 116/66; PULSE 84
== END 2023-08-17 10:57 | disposition home or self-care (01) | DRG 560 ==
LOC: JD.OB 07:04 → OBSVTOIN 22:55 → JD.OB 22:56
PROVIDERS: ADMIT Obstetrics & Gynecology; ATTEND Obstetrics & Gynecology
PROC: 10E0XZZ Delivery of Products of Conception, External Approach (ICD-10-PCS; principal; 2023-08-15)
PROC: 10907ZC Drainage of Amniotic Fluid, Therapeutic from Products of Conception, Via Natural or Artificial Opening (ICD-10-PCS; 2023-08-15)
PROC: 3E033VJ Introduction of Other Hormone into Peripheral Vein, Percutaneous Approach (ICD-10-PCS; 2023-08-15)
PROC: 0KQM0ZZ Repair Perineum Muscle, Open Approach (ICD-10-PCS; 2023-08-15)
PROC: 3E0R3BZ Introduction of Anesthetic Agent into Spinal Canal, Percutaneous Approach (ICD-10-PCS; 2023-08-15)
PROC: 00HU33Z Insertion of Infusion Device into Spinal Canal, Percutaneous Approach (ICD-10-PCS; 2023-08-15)
DX: O32.0XX0 Maternal care for unstable lie, not applicable or unspecified (principal); Z3A.39 39 weeks gestation of pregnancy; Z37.0 Single live birth; K21.9 Gastro-esophageal reflux disease without esophagitis; Z87.891 Personal history of nicotine dependence; Z90.49 Acquired absence of other specified parts of digestive tract; O26.893 Other specified pregnancy related conditions, third trimester; Z67.11 Type A blood, Rh negative; O70.1 Second degree perineal laceration during delivery; O76 Abnormality in fetal heart rate and rhythm complicating labor and delivery; O99.214 Obesity complicating childbirth
CPT/HCPCS: 36415; 51702; 59025; 59409; 85025; 86592; 86850; 86870; 86900; 86901; A9270-GY; C1726; J3010; J3490; J7120; J7999